=== PATIENT | male | born 1995 | race Caucasian/White ===

== ENCOUNTER 2022-08-12 15:41 | Emergency (ER) | payer BC, SELFPAY ==
[2022-08-12 15:45] VITALS: BP 153/95; PULSE 83; RESP 16; TEMP 36.7; O2SAT 97; BMI 32.1
--- NOTE | 2022-08-12 16:45 | ED_ITS ---
HPI - General Adult General Time Seen by Provider: 16:46 Date Seen: 08/12/22 Chief complaint: Back Injury/Pain Stated complaint: Back pain Time Seen by Provider: 08/12/22 16:23 Source: patient, RN notes reviewed and old records reviewed Mode of arrival: ambulatory Limitations: no limitations History of Present Illness HPI narrative: 27-year-old who presents today with back pain. Patient started having little bit of left-sided back pain about 3 weeks ago, and then was playing hockey last night had increased pain in the left low back radiating down the left leg. Taking Tylenol ibuprofen with minimal improvement. Says the leg sometimes feels weak but this may be secondary to pain. Denies bowel or bladder incontinence. No prior back surgeries or back problems. Denies fever. Related Data Previous Rx's Medication Instructions Recorded ondansetron HCl 4 mg tablet 4 mg PO Q8H PRN nausea and 03/15/22 vomiting #10 tabs erythromycin 5 mg/gram (0.5 %) eye 0.5 inch ophthalmic (eye) TID #3.5 05/29/22 ointment grams cyclobenzaprine 10 mg tablet 10 mg PO TID PRN muscle spasm #14 08/12/22 tabs gabapentin 300 mg capsule 300 mg PO TID #90 caps 08/12/22 oxycodone 5 mg capsule 5 mg PO Q6H PRN pain #8 caps 08/12/22 prednisone 10 mg tablets in a dose See Rx Instructions .Route 08/12/22 pack .COMPLEX #31 ea Allergies Allergy/AdvReac Type Severity Reaction Status Date / Time No Known Drug Allergies Allergy Verified 08/12/22 15:48 Review of Systems Status of ROS: Reports: 10 or more systems reviewed and unremarkable except as noted in History and below [facility] Medical History (Updated 08/12/22 @ 16:59 by Justin Hollis MD) Blepharitis ?H01.009 - Unspecified blepharitis unspecified eye, unspecified eyelid (ICD- 10) Social History Smoking Status: Never smoker Exam Narrative: Exam Narrative: General: Well-developed and well-nourished, no acute distress Head: Atraumatic and normocephalic Eyes: Pupils are equal reactive, extraocular motions intact, conjunctiva clear ENT: External nose and ears are normal, posterior pharynx without erythema or exudate Neck: No midline cervical tenderness, full spontaneous range of motion the neck, trachea midline, no adenopathy Heart: Regular rate and rhythm no murmurs or thrills Lungs: Clear to auscultation bilaterally without wheezes or crackles Abdomen: Soft, nontender, nondistended with active bowel sounds Musculoskeletal: Left low lumbar and sciatic tenderness. Sensation of the lower extremities bilaterally is intact. Strength of ankle plantar flexion, dorsiflexion, knee flexion and extension, hip flexion intact. Neurologic: Awake, alert, and oriented x3, no gross focal neurologic deficits, cranial nerves intact as tested Psych: Mood and affect are appropriate Skin: No rashes Const: Vital Signs, click to edit/add: Vital Signs - 24 hr 08/12/22 15:45 Temperature 98.0 F Pulse Rate [Right Pulse Oximeter] 83 Respiratory Rate 16 Blood Pressure [Ri ght Upper Arm] 153/95 H Pulse Oximetry 97 Oxygen Delivery Me thod Room Air Course Course Hospital Course: Patient seen examined, prior records are reviewed. 27-year-old male who comes in today after back injury. Tenderness of the left low lumbar area with pain radiating down the leg but no weakness or decreased sensation. No bowel or bladder incontinence to suggest cauda equina syndrome, no indication for emergent MRI. Patient will be started on gabapentin, prednisone, and will be given oxycodone as needed for pain. Follow-up with spine care with either [facility] or [facility]. Vital Signs Vital signs: Initial Vital Signs Temperature 98.0 F 08/12/22 15:45 Temperature Source Temporal Artery Scan 08/12/22 15:45 Pulse Rate 83 08/12/22 15:45 Pulse Rhythm Regular 08/12/22 15:45 Pulse Strength 3+ Normal 08/12/22 15:45 Respiratory Rate 16 08/12/22 15:45 Blood Pressure 153/95 H 08/12/22 15:45 Blood Pressure Mean 114 H 08/12/22 15:45 Blood Pressure Position Sitting 08/12/22 15:45 Pulse Oximetry 97 08/12/22 15:45 Oxygen Delivery Method Room Air 08/12/22 15:45 Vital Signs Temperature 98.0 F 08/12/22 15:45 Pulse Rate 83 08/12/22 15:45 Respiratory Rate 16 08/12/22 15:45 Blood Pressure 153/95 H 06/22/23 15:45 Pulse Oximetry 97 08/12/22 15:45 Oxygen Delivery Method Room Air 08/12/22 15:45 Temperature 98.0 F 08/12/22 15:45 Pulse Rate 83 08/12/22 15:45 Respiratory Rate 16 08/12/22 15:45 Blood Pressure 153/95 H 08/12/22 15:45 Pulse Oximetry 97 08/12/22 15:45 Oxygen Delivery Method Room Air 08/12/22 15:45 Medical Decision Making Medical Records Medical records reviewed: Yes I reviewed the patient's medical records Lab Data Lab results reviewed: Yes I reviewed the patient's lab results Discharge Plan Discharge Clinical Impression: Lumbar radiculopathy Patient Disposition: Home, Self-Care Condition: Stable Instructions: Lumbar Radiculopathy (ED) Additional Instructions: Take gabapentin regularly as prescribed, oxycodone as needed Follow-up with [facility] ([phone]) or [facility] ([phone]) in 5-7 days Discharge Diet: Regular Prescriptions: New gabapentin 300 mg capsule 300 mg PO TID Qty: 90 0RF Rx Instructions: Start taking 1 tablet twice a day, increase to 1 tablet 3 times a day after 3 days if needed prednisone 10 mg tablets,dose pack See Rx Instructions .ROUTE .COMPLEX Qty: 31 0RF Rx Instructions: 40 mg daily for 3 days, then 30 mg daily for 3 days, then 20 mg daily for 3 days, then 10 mg daily for 3 days, then 5 mg daily for 2 days oxycodone 5 mg capsule 5 mg PO Q6H PRN (Reason: pain) Qty: 8 0RF cyclobenzaprine 10 mg tablet 10 mg PO TID PRN (Reason: muscle spasm) Qty: 14 0RF No Action erythromycin 5 mg/gram (0.5 %) ointment 0.5 inch ophthalmic (eye) TID Qty: 3.5 0RF ondansetron HCl 4 mg tablet 4 mg PO Q8H PRN (Reason: nausea and vomiting) Qty: 10 0RF Follow Up/Referrals: Provider,Not a Local [Primary Care Provider] - Stand Alone Forms: [facility] Info Instructions
== END 2022-08-12 17:20 | disposition home or self-care (01) ==
PROVIDERS: Emergency Provider Family Medicine
DX: M54.16 Radiculopathy, lumbar region (principal)
CPT/HCPCS: 96372; 99284

== ENCOUNTER 2022-08-30 07:48 | Outpatient (CLI) | payer BC, SELFPAY ==
--- NOTE | 2022-08-30 08:00 | CRLHL7_ITS ---
For Patients: As a result of the Cures Act, medical imaging exams and procedure reports are released immediately into your electronic medical record. You may view this report before your referring provider. If you have questions, please contact your health care provider. Indication: chronic sinusitis Technique: Performed without IV contrast Comparison: None available Findings: Frontal sinuses: Clear. Ethmoid sinuses: Mild amount of mucus within the left ethmoid sinus. Clear right ethmoid sinus. Maxillary sinuses: 2.2 cm mucous retention cyst within the left maxillary sinus. Mild mucosal thickening within both maxillary sinuses.. The maxillary sinus drainage pathways are patent on both sides. Sphenoid sinuses: Trace mucosal thickening within the right sphenoid sinus. Clear left sphenoid sinus. Patent sphenoethmoidal recesses. Nasal Cavity: Leftward curvature of the nasal septum with left-sided nasal septal spur. No TMJ abnormalities identified. Dense calcification of the left trochlear apparatus noted. This is typically incidental but can be associated with diabetes. Impression: 1. Mild bilateral sinus disease with patency of the sinus drainage pathways. 2. Left-sided nasal septal spur with slight curvature of the nasal septum. Please note that all CT scans at this facility use dose modulation, iterative reconstruction, and/or weight-based dosing when appropriate to reduce radiation dose to as low as reasonably achievable. Dictated by Yoseph Alfonso MD @ 08/30/2022 9:31:15 AM (Electronically Signed)
== END 2022-08-30 07:49 | disposition home or self-care (01) ==
PROVIDERS: Visit Provider Otolaryngology
DX: J32.9 Chronic sinusitis, unspecified (principal); J34.2 Deviated nasal septum
CPT/HCPCS: 70486